=== PATIENT | female | born 1945 | race Caucasian/White ===

== ENCOUNTER 2019-06-19 10:43 | Day surgery (SDC) | payer MEDICARE ==
[~2019-06-19] VITALS: Ht 157.5 cm; Wt 100.0 kg
== END 2019-06-19 17:48 | disposition home or self-care (01) ==
LOC: CACL 10:43
PROVIDERS: ATTEND Internal Medicine Cardiovascular Disease
DX: I27.0 Primary pulmonary hypertension (principal); I70.208 Unspecified atherosclerosis of native arteries of extremities, other extremity; E11.9 Type 2 diabetes mellitus without complications; E66.3 Overweight; Z68.41 Body mass index [BMI] 40.0-44.9, adult; Z79.899 Other long term (current) drug therapy; Z88.8 Allergy status to other drugs, medicaments and biological substances
CPT/HCPCS: 93460; 99156; 99157; C1769; C1894; J1200; J1644; J2250; J3010; Q9967

== ENCOUNTER → 2020-09-16 | Outpatient (CLI) | payer MEDICARE ==
[~2020-09-16] MED LIST: BRIM5DRO EACHEYE; CALC-126 PO; CYAN100014 PO; DIPH25CA61 PO; IBUP200C8 PO; MILK87.5 PO; OMEP-110 PO; PREVAGIN PO; TIMO5DRO8 EACHEYE; VIT1CAPS44 PO
== END | disposition home or self-care (01) ==
LOC: CFH 12:36
PROVIDERS: ATTEND Internal Medicine Cardiovascular Disease
DX: I34.8 Other nonrheumatic mitral valve disorders (principal); R06.02 Shortness of breath; I27.0 Primary pulmonary hypertension
CPT/HCPCS: 93306

== ENCOUNTER 2021-03-03 13:00 | Outpatient (CLI) | payer MEDICARE ==
[2021-03-03 13:27] LABS: CALCIUM 9.9 mg/dL (8.5-10.1); CHLORIDE 105 mmol/L (98-107)
[2021-03-03 13:35] LABS: ANION GAP 3 mmol/L (5-15); CREATININE 0.78 mg/dL (0.55-1.02)
== END 2021-03-03 23:59 | disposition home or self-care (01) ==
LOC: LAB 13:00
PROVIDERS: ATTEND Internal Medicine Cardiovascular Disease
DX: I27.0 Primary pulmonary hypertension (principal); R06.02 Shortness of breath
CPT/HCPCS: 36415; 80048; 83880